=== PATIENT | male | born 1980 | race Caucasian/White ===

== ENCOUNTER 2017-03-30 23:57 | Emergency (ER) | payer SELFPAY ==
[~2017-03-30] VITALS: Ht 182.9 cm; Wt 93.0 kg
[2017-03-31] VITALS: BP 154/97
--- NOTE | 2017-03-31 00:21 | PHYS DOC ---
Adult General Chief Complaint Chief Complaint: ANKLE PROBLEM HPI HPI Patient is a 37 year old male with no significant medical history who presents today with moderate left lateral ankle pain worse on weightbearing that began 4 days ago after he he fell from a moving truck rolling his ankle. Patient denies any loss of consciousness. Review of Systems Review of Systems Constitutional: Denies fever or chills [] Eyes: Denies change in visual acuity, redness, or eye pain [] Musculoskeletal: Left ankle pain Integument: Denies rash or skin lesions [] Neurologic: Denies headache, focal weakness or sensory changes [] Endocrine: Denies polyuria or polydipsia [] Current Medications Current Medications Current Medications Medications (Trade) Dose Ordered Sig/Reta Start Time Stop Time Status Last Admin Dose Admin Acetaminophen/ Hydrocodone Bitart (Lortab 5/325) 1 tab 1X ONCE 03/31/17 01:00 03/31/17 01:01 Allergies Allergies Allergies Coded Allergies Type Severity Reaction Last Updated Verified No Known Drug Allergies 03/31/17 No Physical Exam Physical Exam Constitutional: Well developed, well nourished, no acute distress, non-toxic appearance. [] HENT: Normocephalic, atraumatic, bilateral external ears normal, oropharynx moist, no oral exudates, nose normal. [] Skin: Left dorsal foot and ankle with erythematous rash which patient states has been there for years. +2 left pedal pulse. Mild amount of Soft tissue swelling noted on the left ankle. Full range of motion to the left ankle and foot. Patient able to flex and extend the left foot and ankle with no difficulty. Sensation intact to the left lower extremity. Cap refill less than 2 seconds left lower extremity. Back: No tenderness, no CVA tenderness. [] Extremities: No tenderness, no cyanosis, no clubbing, ROM intact, no edema. [] Neurologic: Alert and oriented X 3, normal motor function, normal sensory function, no focal deficits noted. [] Psychologic: Affect normal, judgement normal, mood normal. [] Current Patient Data Vital Signs Vital Signs Date Time Temp Pulse Resp B/P (MAP) Pulse Ox O2 Delivery O2 Flow Rate FiO2 03/31/17 00:00 98.0 68 16 98 Room Air 98.0 EKG EKG [] Radiology/Procedures Radiology/Procedures [] Course & Med Decision Making Course & Med Decision Making Pertinent Labs and Imaging studies reviewed. (See chart for details) Patient is in the ED with left ankle pain that began a couple days ago after he fell off a moving truck rolling his ankle. Left ankle x-rays interpreted by Dr. Carlisle were noted for Tibia plateau fx, stirrup splint applied to the left ankle. Ice elevation encouraged. Follow-up with orthopedic doctor in 1 day Dorene Disclaimer Dragon Disclaimer This electronic medical record was generated, in whole or in part, using a voice recognition dictation system. Departure Departure Impression: Primary Impression: Fall Additional Impression: Tibial plateau fracture, left Disposition: HOME, SELF-CARE Condition: STABLE Referrals: LILIAN SCHMIDT MD Follow-up in one week if pain continues Patient Instructions: Ankle Fracture Additional Instructions: You were seen for left ankle fracture. Ice and elevate the extremity. Take the prescribed medicines as needed for pain. Follow-up with the provided orthopedic doctor in 1-2 days. Scripts Hydrocodone/Apap 5-325 (NORCO 5-325 TABLET) 1 Each Tablet 1-2 TAB PO Q4-6HRS, #14 TAB Prov: SALMA FARNSWORTH APRN 03/31/17 Problem Qualifiers Primary Impression: Fall Encounter type: initial encounter Qualified Codes: W19.XXXA - Unspecified fall, initial encounter Additional Impression: Tibial plateau fracture, left Encounter type: initial encounter Fracture type: closed Qualified Codes: S82.142A - Displaced bicondylar fracture of left tibia, initial encounter for closed fracture SALMA FARNSWORTH APRN March 31, 2017 00:21
[2017-03-31] MEDS ORDERED: HYDR-971 PO (00:55)
[2017-03-31] MEDS ORDERED: HYDROcodone/APAP 5/325MG 1 TAB TABLET PO ONE (01:00)
--- NOTE | 2017-03-31 07:16 | RAD ---
Left ankle, 3 views, 03/31/2017: History: Ankle pain and swelling There are calcific densities at the tips of the medial and lateral malleoli. These are well-defined and probably old. A calcific density along the posterior aspect of the talus is compatible with an accessory ossicle. There is mild spurring at the ankle joint. No definite acute fracture or dislocation is identified. There is mild soft tissue swelling about the ankle. IMPRESSION: 1. Avulsion fractures at the tips of the medial and lateral malleolus are probably old. 2. Mild degenerative change at the left ankle.
== END 2017-03-31 01:19 | disposition home or self-care (01) ==
LOC: ER 23:57
DX: S82.142A Displaced bicondylar fracture of left tibia, initial encounter for closed fracture (principal); V69.9XXA Occupant (driver) (passenger) of heavy transport vehicle injured in unspecified traffic accident, initial encounter; Y92.413 State road as the place of occurrence of the external cause; Y93.89 Activity, other specified; Y99.8 Other external cause status
CPT/HCPCS: 29515; 73610; 99284-25